=== PATIENT | male | born 1960 | race American Indian/Alaskan Native ===

== ENCOUNTER 2017-02-06 12:02 | Day surgery (SDC) | payer MEDICAID ==
[2017-01-31 10:04] VITALS: BMI 32.3
[2017-02-06] MEDS ORDERED: Iohexol 240 (50 ml) ONE (13:30)
[2017-02-06] MEDS ORDERED: cefTRIAXone (Rocephin) 1 gm Inj ONE (13:30)
[2017-02-06] MEDS ORDERED: Lidocaine 2% Jelly (Uro-Jet) ONE (13:30)
[2017-02-06] MEDS ORDERED: Propofol 10 mg/ml Inj (20 ML) ONE (14:51)
[2017-02-06] MEDS ORDERED: Midazolam 2 MG/2 ML VIAL ONE (14:51)
[2017-02-06] MEDS ORDERED: Lactated Ringer's 1,000 ML IV SCH (15:30)
--- NOTE | 2017-02-06 16:20 | RAD ---
PROCEDURE: Retrograde pyelogram HISTORY: Bilateral Retrograde Pyelogram COMPARISON: TECHNIQUE: Fluoroscopy was provided in the operating room. 47 seconds of fluoro time were used. 17 images were submitted FINDINGS: The right renal collecting system is unremarkable. On the left side there are some filling defects in the proximal ureter that it appear to be transient and are probably air bubbles. There is some pyelosinus extravasation in the right renal collecting system. Procedure was performed by Dr. Parada IMPRESSION: As above
--- NOTE | 2017-02-06 16:27 | OP ---
PROCEDURE DATE: 02/06/2017 PREOPERATIVE DIAGNOSIS: Gross microscopic hematuria. POSTOPERATIVE DIAGNOSIS: Gross microscopic hematuria. PROCEDURE: Cystoscopy, bilateral retrograde pyelograms. ATTENDING SURGEON: Dr. Song Parada. ANESTHESIA: General. SPECIMENS: There were none. DRAINS: There were none. COMPLICATIONS: There were none. OPERATIVE FINDINGS: After informed consent was obtained, the patient was taken to the operating room, placed on the operating table, anesthesia was administered. The patient was then placed in the dorsal lithotomy position, prepped and draped in usual sterile fashion. A 21[employer] cystoscope was placed in the patient's urethra and advanced proximally under direct vision until the bladder was entered. A full survey inspection of the bladder was then performed which revealed no stones, papillary tumors or foreign bodies of the bladder. Both ureteral orifices were visualized. The right appeared within normal limits. The left was normal. There was a hutch diverticulum just proximal to the left orifice. There was grade 1 trabeculation. Exam of the urethra was within normal limits. Prostate was opened, did not appear inclusive. At this point, a [place] catheter was introduced and guided into the right ureteral orifice. The right retrograde pyelogram was then performed by filling contrast through the [place] catheter into the right ureter during real-time fluoroscopy. The right ureter and kidney appeared within normal caliber. There was no hydronephrosis. There were no obvious filling defects noted and the system was noted to drain promptly. At this point, the open-ended catheter was able to be guided into the left ureteral orifice. Left retrograde pyelogram was performed in a similar fashion. The left retrograde pyelogram also appeared grossly within normal limits. There was no filling defects or evidence of obstruction. The films were submitted to radiology for interpretation. At this point, a final inspection of the bladder was made. Again, there were no suspicious lesions or growths. Both systems noted to be draining promptly. There was some pyelovenous backflow noted on the left side; however, no filling defects or other abnormalities. At this point, the procedure was completed. The bladder was drained and the cystoscope was removed. The patient tolerated the procedure well, and he was taken to the recovery room awake in stable condition. Song Parada MD
[2017-02-06 17:04] VITALS: BP 120/86; PULSE 56; RESP 18; TEMP 98.4; O2SAT 96
== END 2017-02-06 17:26 | disposition home or self-care (01) ==
LOC: SDS 12:02
PROVIDERS: ATTEND Urology
DX: R31.0 Gross hematuria (principal); I10 Essential (primary) hypertension
CPT/HCPCS: 52005; 74420; C1758; J0696; J1885; J2250; J2704; J3010; J7120 ×2; Q9966